=== PATIENT | male | born 1960 | race Caucasian/White ===

== ENCOUNTER 2020-03-02 18:54 | Emergency (ER) | payer BC, OTHER ==
[~2020-03-02 18:54] MED LIST: Iopamidol-370 76% 500 ML 1 ML ONE
[2020-03-02] MEDS ORDERED: Morphine 4 MG/ML VIAL ONE (19:24)
--- NOTE | 2020-03-02 19:45 | RAD ---
Left knee 4 views: 03/02/2020 COMPARISON: None HISTORY: Injury, trauma, pain FINDINGS: Posterior patellar osteophyte formation noted. No significant knee joint effusion, fracture , or evidence of dislocation. There is vascular calcification posterior to the distal femur and proximal tibia. IMPRESSION: No acute osseous abnormality.
--- NOTE | 2020-03-02 19:46 | RAD ---
Portable frontal chest radiograph: 03/02/2020 COMPARISON: None available HISTORY: Injury, trauma, pain FINDINGS: Lungs are clear. Heart and mediastinal contours appear within normal limits. There is a 9 m m nodular density overlying the medial aspect of the right lung base. IMPRESSION: No acute findings. 9 mm nodular density in the right lung base for which nonemergent foll ow-up CT is suggested. CODE T Code LN
--- NOTE | 2020-03-02 19:48 | RAD ---
4 views right knee: 03/02/2020 COMPARISON: None History: Injury, trauma, pain FINDINGS: There is vascular calcification posterior to the distal right femur and proximal right tibi a. There is mild posterior patellar osteophyte formation with no knee joint effusion, displaced fracture, or evidence of dislocation. Mild medial compartment narrowing. IMPRESSION: No acute osseous abnormality.
[2020-03-02 19:52] LABS: #Basophils 0.1 thou/uL (0.0-0.2); #Eosinphils 0.1 thou/uL (0.0-0.7); #Lymphocytes 1.9 thou/uL (1.20-3.40); #Monocytes 0.7 thou/uL (0.11-0.59); #Neutrophils 5.6 thou/uL (1.40-6.50); %Basophils 0.8 % (0.0-1.0); %Eosinophils 0.8 % (0.0-10.0); %Lymphocytes 22.6 % (21.0-51.0); %Monocytes 8.8 % (0.0-10.0); Hemoglobin 15.4 g/dL (14.0-18.0); Mean Corpuscular HGB CONC 31.9 g/dL (32.0-36.0); Mean Corpuscular Hemoglobin 30.1 pg (27.0-31.0); Mean Corpuscular Volume 94.2 fL (78.0-98.0); Mean Platelet Volume 7.4 fL (7.4-10.4); Platelet Count 210 thou/uL (130-400); RBC Distribution Width 11.6 % (11.5-14.5); Red Blood Cell (RBC) Count 5.12 mill/uL (4.70-6.10); White Blood Cell (WBC) Count 8.3 thou/uL (4.8-10.8)
[2020-03-02 20:16] LABS: ALT (SGPT) 19 U/L (8-55); AST (SGOT) 26 U/L (5-34); Albumin 4.4 g/dL (3.4-4.8); Alkaline Phosphatase 63 U/L (40-110); Anion Gap 16 mmol/L (10-20); BUN (Urea Nitrogen) 11 mg/dL (8.4-25.7); Bilirubin, Total 0.8 mg/dL (0.2-1.2); Calc. Creatinine Clearance 0 mL/min (70-130); Calcium 9.3 mg/dL (7.8-10.44); Carbon Dioxide 22 mmol/L (23-31); Chloride 102 mmol/L (98-107); Globulin 2.8 g/dL (2.4-3.5); Glucose 105 mg/dL (80-115); Potassium 4.3 mmol/L (3.5-5.1); Protein, Total 7.2 g/dL (5.8-8.1); Sodium 136 mmol/L (136-145)
[2020-03-02] MEDS ORDERED: Ketorolac Tromethamine 30 MG/ML VIAL ONE (20:22)
[2020-03-02] MEDS ORDERED: Ondansetron PF 4 MG/2 ML Vial ONE (20:22)
[2020-03-02] MEDS ORDERED: Proparacaine 0.5% Opth 15 ML BOT ONE (20:26)
[2020-03-02] MEDS ORDERED: Fluorescein Opthalmic Strip ONE (20:26)
--- NOTE | 2020-03-02 20:52 | CT ---
Head CT without contrast 03/02/2020: Comparison: None HISTORY: Injury, trauma, pain TECHNIQUE: Axial CT imaging at 5 mm intervals from vertex through skull base without contrast. Gomez l and sagittal reformatted imaging obtained. FINDINGS: The visualized paranasal sinuses and mastoid air cells are well aerated. No intracranial he morrhage, midline shift, mass effect, or ventricular enlargement. No displaced calvarial fracture. IMPRESSION: No acute findings.
--- NOTE | 2020-03-02 20:58 | CT ---
CT of the abdomen, pelvis, and lumbar spine: 03/02/2020 COMPARISON: None HISTORY: Injury, trauma, pain TECHNIQUE: Axial CT imaging at 5 mm intervals from lung bases through pubic symphysis with IV contras t. Coronal and sagittal reformatted imaging obtained. FINDINGS: There is a nodule within the right lower lobe measuring 1.1 cm with a punctate central calc ification. This is thus likely on the basis of granulomatous disease. As the majority of this nodule is of soft tissue density, a follow-up CT is advised of the chest in 6 months. No free intraperitoneal air or fluid is seen. The liver, gallbladder, spleen, pancreas, adrenal glands, and kidneys demonstrate no acute findings. Urinary bladder is moderately distended. Limited assessment of the bowel demonstrates no acute findin gs. There is multifocal atherosclerotic calcification of the abdominal aorta and its branches. There is m ild aneurysmal dilatation of the infrarenal abdominal aorta measuring up to approximately 3 cm in AP dimension. No abdominal or pelvic lymphadenopathy. No fracture of the inferior or superior pubic ramus on either side. No widening of the sacroiliac ander ac joints or the pubic symphysis. No acute osseous abnormality is seen within the pelvis. There is mild anterolisthesis at the L4-5 level measuring in the 6 mm range. There is multilevel lowe r lumbar spine facet hypertrophy bilaterally, most prominent at the L4-5 level. No acute fracture or dislocation is seen involving the lumbar spine IMPRESSION: No acute posttraumatic abnormality is seen within the abdomen/pelvis. There is borderline aneurysmal dilatation of the infrarenal abdominal aorta measuring up to 3 cm in AP dimension. There is a nodule within the right lower lobe for which follow-up CT of the chest is advised in 6 mon ths. RADHA T
--- NOTE | 2020-03-02 21:01 | CT ---
CT cervical spine: 03/02/2020 COMPARISON: None HISTORY: Injury, trauma, pain TECHNIQUE: Axial CT imaging at 1.25 mm intervals through the cervical spine with coronal and sagittal reformatted imaging. FINDINGS: The visualized lung apices are unremarkable. The occipital condyles, the dens, and the C1-2 articulation demonstrate no acute findings. There is significant multilevel bilateral cervical spine facet hypertrophy, most prominent on the rig ht at C2-3 and on the left at C5-6. There is prominent degenerative change at the atlantoaxial interspace. Craniocervical junction, atlan toaxial interspace, and cervicothoracic junction demonstrate no acute findings. The C1 ring is intact. Right neural foraminal stenosis at C2-3 noted on the basis of facet and uncovertebral osteophyte form ation. There is mild neural foraminal stenosis on the left at C5-6. No acute fracture or dislocation is seen. IMPRESSION: Degenerative change within the cervical spine. No acute fracture or dislocation.
[2020-03-02 21:25] LABS: Bilirubin Negative (Negative); Blood, Urine Negative (Negative); Clarity Clear (Clear); Glucose, Urine (Dipstick) Normal (Negative); Ketone, Urine Trace mg/dL (Negative); Leukocyte Negative Leu/uL (Negative); Nitrite Negative (Negative); Protein, Urine (Dipstick) 20 mg/dL (Neg-Trace); Specific Gravity, Urine 1.008 (1.002-1.036); Urobilinogen Normal mg/dL (Less than 2)
== END 2020-03-02 22:01 | disposition home or self-care (01) ==
LOC: ERS 18:54
DX: S13.4XXA Sprain of ligaments of cervical spine, initial encounter (principal); S16.1XXA Strain of muscle, fascia and tendon at neck level, initial encounter; S80.212A Abrasion, left knee, initial encounter; M54.5 Low back pain; I71.4 Abdominal aortic aneurysm, without rupture; R91.1 Solitary pulmonary nodule; I10 Essential (primary) hypertension; F17.220 Nicotine dependence, chewing tobacco, uncomplicated; V89.2XXA Person injured in unspecified motor-vehicle accident, traffic, initial encounter
CPT/HCPCS: 36415; 70450; 71045; 72125; 74177; 80053; 81003; 85025; 96374; 96375; J1885; J2270; J2405; Q9967